=== PATIENT | male | born 2000 | race Caucasian/White ===

== ENCOUNTER 2024-12-10 19:06 | Emergency (ER) | payer BC, SELFPAY ==
[2024-12-10 19:07] VITALS: BMI 21.9
[2024-12-10 19:15] VITALS: BP 136/78; PULSE 78; RESP 20; TEMP 36.5; O2SAT 99
--- NOTE | 2024-12-10 19:21 | XR_ITS ---
Examination: Testicular sonography complete Technique: Grayscale sonographic images testes, assessment arterial inflow venous outflow Doppler spectral analysis carful analysis Date and time: December 10, 2024, 194 hrs. Indications: Left flank pain radiating to the testicle today Findings: Right testis 3.3 cm epididymis 12 mm Arterial flow testicle. No testicular mass Left testis 3.6 cm epididymis 11 mm 3 mm epididymal cyst Arterial flow testicle. No testicular mass Impression: No testicular torsion or testicular mass
--- NOTE | 2024-12-10 19:21 | XR_ITS ---
Examination: CT abdomen and pelvis without contrast. Coronal 3-D reconstructions. Sagittal 2-D reconstructions. Date and time of exam:December 10, 2024, 2011 hrs. Indications: Left flank pain onset today. CTDI: vol (mGy): 4.99 DLP: (mGycm): 258 Technique: Axial images of the abdomen have been obtained, 3 mm slice thickness Intravenous contrast material has not been administered. Low dose protocols were performed. One or more of the following dose reduction techniques were used; automated exposure control, adjustment of the mA and/or KV according to patient size, use of iterative reconstruction technique. Findings: No focal liver or splenic lesion No gallstones No pancreatic or adrenal mass Hyperdense renal pyramids bilaterally, nephrocalcinosis pattern Mild left hydronephrosis, 4 mm distal left ureteral calculus No bowel obstruction Normal appendix Contracted urinary bladder Impression: Mild left hydronephrosis secondary to 4 mm distal left ureteral calculus
--- NOTE | 2024-12-10 19:22 | PD.EDRME ---
Rapid Medical Screening Exam RME Arrival date/time: 12/10/24 19:06 24M with no significant PMH presents to ED with sudden L flank/pelvic pain that radiates to groin, as well as N/V. Patient denies dysuria, penile discharge, and concern for STD. Chief Complaint: General Adult/Misc Complain Time Seen by Provider: 12/10/24 19:20 Vital signs: Vital Signs Temperature 97.7 F 12/10/24 19:15 Pulse Rate 78 12/10/24 19:15 Respiratory Rate 20 12/10/24 19:15 Blood Pressure 136/78 H 12/10/24 19:15 Pulse Oximetry (%) 99 12/10/24 19:15 Oxygen Delivery Method Room Air 12/10/24 19:15
[2024-12-10] MEDS: KETOROLAC INJ 60 MG/2 ML VIAL IM (19:32)
[2024-12-10] MEDS: ONDANSETRON ODT 4 MG TABRAP PO (19:34)
[2024-12-10 19:41] LABS: Basophils # (Auto) 0.0 Thou/mm3 (0.0-0.2); Basophils % (Auto) 0 % (0-2.5); Eosinophils # (Auto) 0.1 Thou/mm3 (0.0-0.5); Eosinophils % (Auto) 1 % (0-10); Hematocrit 48.2 % (41.0-53.0); Hemoglobin 17.2 g/dL (13.5-16.0); Immature Granulocytes Auto 0.01 Thou/mm3 (0.00-0.00); Lymphocytes # (Auto) 2.0 Thou/mm3 (1.0-4.8); Lymphocytes % (Auto) 29 % (10-50); Mean Corpuscular HGB Conc 35.7 g/dl (31.0-37.0); Mean Corpuscular Hemoglobin 31.2 pg (25.0-35.0); Mean Corpuscular Volume 87 fL (80-100); Monocytes # (Auto) 0.8 Thou/mm3 (0.0-0.8); Monocytes % (Auto) 11 % (0-12); Neutrophils # (Auto) 4.0 Thou/mm3 (1.8-7.7); Neutrophils % (Auto) 58 % (37-80); Nucleated Red Blood Cell # 0.00 Thou/mm3 (0.00-0.00); Nucleated Red Blood Cell % 0 /100 WBC (0); Platelet Count 291 Thou/mm3 (140-440); RDW Standard Deviation 38.2 fL (35.1-43.9); Red Blood Count 5.52 Miln/mm3 (4.50-5.90); White Blood Count 6.9 Thou/mm3 (3.8-10.6)
[2024-12-10 19:58] LABS: Alanine Aminotransferase 18 U/L (10-49); Albumin, Serum 5.1 gm/dL (3.5-5.0); Albumin/Globulin Ratio 1.8 (1.2-2.2); Alkaline Phosphatase 87 U/L (46-116); Anion Gap 9 (7-16); Aspartate Amino Transferase 25 U/L (0-34); BUN/Creatinine Ratio 8 Ratio (12-20); Bilirubin,Total 2.0 mg/dL (0.3-1.2); Blood Urea Nitrogen 10 mg/dL (9-23); Calcium 10.3 mg/dL (8.3-10.6); Calcium (Corrected) 10.3 mg/dL (8.5-10.1); Carbon Dioxide 26.9 mMol/L (20.0-31.0); Chloride 106 mMol/L (98-107); Creatinine (Component) 1.2 mg/dL (0.6-1.3); Estimated Creatinine Clearance 92.3 mL/min (>60); Globulin 2.8 gm/dL (2.3-3.5); Glucose 110 mg/dL (74-106); Osmolality,Calculated 283 (275-295); Potassium 3.7 mMol/L (3.4-5.1); Sodium 142 mMol/L (136-145); Total Protein 7.9 gm/dL (5.7-8.2); eGFR > 60 See Note
[2024-12-10 23:06] LABS: Collection Type, Urine Clean Catch; Squamous Epithelial Cell,Urine 0 /hpf (0-5)
[2024-12-10 23:22] LABS: Amphetamine/Methamp Scrn,U Negative (Negative); Barbiturate Screen,Urine Negative (Negative); Benzodiazepines Screen,Urine Negative (Negative); Benzoylecgonine Screen, Ur Negative (Negative); Fentanyl Screen,Urine Negative (Negative); Opiate Screen,Urine Negative (Negative); THC Screen,Urine Negative (Negative)
[2024-12-10 23:25] LABS: Bilirubin,Urine Negative (Negative); Blood,Urine 3+ (Negative); Clarity,Urine Turbid (Clear/Hazy); Color,Urine Yellow (Lt Yel-Yel); Culture Indicated,Urine Not Indicated; Glucose, Urine Negative (Negative); Ketones,Urine 1+ (Negative); Leukocyte Esterase,Urine Negative (Negative); Nitrite,Urine Negative (Negative); PH,Urine 6.0 (5.0-7.0); Protein,Urine 1+ (Neg - Trace); RBC,Urine 454 /hpf (0-3); Specific Gravity,Urine 1.035 (1.001-1.035); Urobilinogen,Urine Negative mg/dL (0.0-1.0); WBC,Urine 3 /hpf (0-5)
--- NOTE | 2024-12-10 23:41 | EDNOTE_ITS ---
ED Male Genitalurinary RME/HPI General Chief complaint: General Adult/Misc Complain Stated complaint: testical pain Time Seen by Provider: 12/10/24 19:20 Arrival date/time: 12/10/24 19:06 24M with no significant PMH presents to ED with sudden L flank/pelvic pain that radiates to groin, as well as N/V. Patient denies dysuria, penile discharge, and concern for STD. Limitations: no limitations RME / HPI RME / HPI Narrative: 12/10/24 19:06 24M with no significant PMH presents to ED with sudden L flank/pelvic pain that radiates to groin, as well as N/V. Patient denies dysuria, penile discharge, and concern for STD. Related Data Home Medications ?Medication ?Instructions ?Recorded ?Confirmed loratadine 10 mg tablet (Claritin) 10 mg PO QDAY 07/14 Previous Rx's ?Medication ?Instructions ?Recorded naproxen 500 mg tablet 500 mg PO BID PRN pain #14 t abs 12/10/24 ondansetron 4 mg disintegrating 4 mg PO Q8H PRN nausea and 12/10/24 tablet vomiting #14 tabs tamsulosin 0.4 mg capsule (Flomax) 0.4 mg PO QDAY #14 caps 12/10/24 Allergies Allergy/AdvReac Type Severity Reaction Status Date / Time amoxicillin Allergy Mild RASH Verified 09/15/19 18:05 clavulanic acid Allergy Mild RASH Verified 09/15/19 18:05 Sulfa (Sulfonamide Allergy RASH Verified 09/15/19 18:05 Antibiotics) Review of Systems Review of Systems Systems Reviewed: All systems reviewed, normal except as documented Genitourinary Genitourinary: Reports as per HPI and Reports flank pain Past Medical History Past Medical History CARDIAC: Negative Congestive Heart Failure RESPIRATORY: Negative Chronic Obstructive Pulmonary Disease (COPD) GENITOURINARY: Negative Renal Disease ENDOCRINE: Negative Diabetes Mellitus Type 1 or Diabetes Mellitus Type 2 Surgical History SURGICAL: Positive Ear Surgery (left ear blown out ear drum) Social History SMOKING STATUS: Never smoker ED Exam General Limitations: Present no limitations General appearance: Present alert and in distress Head Head exam: Present atraumatic Neck Neck exam: Present normal inspection, full ROM and trachea midline Chest Chest inspection: Present normal inspection and symmetric chest wall rise Neurological Exam Neurological exam: Present alert and oriented X3 Psychiatric Psychiatric exam: Present normal affect and anxious Skin Skin exam: Present warm, dry, intact and normal color Course Quality Measures none Orders Category Date Time Status CT abdomen pelvis wo con Stat Exams 12/10/24 19:21 Completed US testicular Stat Exams 12/10/24 19:21 Completed CBC Stat Lab 12/10/24 19:32 Completed CMP [Comprehensive Metabolic Panel] Stat Lab 12/10/24 19:32 Completed Drug Screen,Urine Stat Lab 12/10/24 23:01 Completed Urinalysis, C/S if Indicated Stat Lab 12/10/24 23:01 Completed Ketorolac Inj [Toradol Inj] Med 12/10/24 19:21 Discontinued 60 mg IM X1 ONE Morphine Oral LIQUID Med 12/10/24 23:51 Discontinued 5 mg PO X1 ONE Ondansetron Odt [Zofran Odt] Med 12/10/24 19:21 Discontinued 4 mg PO X1 ONE Tamsulosin HCl [Flomax] Med 12/10/24 23:51 Discontinued 0.4 mg PO X1 ONE Vital Signs Vital signs: Vital Signs Temperature 97.7 F 12/10/24 19:15 Pulse Rate 78 12/10/24 19:15 Respiratory Rate 20 12/10/24 19:15 Blood Pressure 136/78 H 12/10/24 19:15 Pulse Oximetry (%) 99 12/10/24 19:15 Oxygen Delivery Method Room Air 12/10/24 19:15 O2 at 99% on RA and WNLs Urogenital - Male MDM Narrative MDM Narrative:: 24M with no significant PMH presents to ED with sudden L flank/pelvic pain that radiates to groin, as well as N/V. Patient denies dysuria, penile discharge, and concern for STD. Physical exam reveals patient who appears to be in pain. Patient is afebrile and alert. CT reveals 4 mm L distal kidney stone. US testicular unremarkable. No leukocytosis. CMP unremarkable. UA only blood. Meds and debt and budget counselor given. Patient data External records reviewed:: [facility] previous records Clinical information provided by:: patient Social determinants that could affect healthcare access:: none Patient has the following chronic illnesses:: none How is presenting disease/condition affected by chronic disease/condition?: no chronic disease Evaluation data The following diagnostics were reviewed and interpreted by me:: lab results and radiology exam(s) Lab and/or radiology exams considered but not ordered:: ordered Interpretation Summary: above Medications / Prescriptions Medications or Prescriptions considered but not ordered:: ordered Medication administrations:: Medication Administration History Discontinued Medications Ketorolac Tromethamine (Ketorolac Inj 60 Mg/2 Ml Vial) 60 mg IM X1 ONE Stop: 12/10/24 19:22 Last Admin: 12/10/24 19:32 Dose: 60 mg Documented By: OA Morphine Sulfate (Morphine Sulf Liqd 10 Mg/5 Ml Udc) 5 mg PO X1 ONE Stop: 12/10/24 23:52 Ondansetron HCl (Ondansetron Odt 4 Mg Tabrap) 4 mg PO X1 ONE; Protocol Stop: 12/10/24 19:22 Last Admin: 12/10/24 19:34 Dose: 4 mg Documented By: OA Tamsulosin HCl (Tamsulosin Hcl 0.4 Mg Capsule) 0.4 mg PO X1 ONE Stop: 12/10/24 23:52 above Consultations Consultation(s) initiated? (list below): No Diagnosis Urogenital Male Differential Diagnosis: urinary tract infection, priapism, urethritis, epididymitis, genital herpes simplex, prostatitis, acute retention of urine and inguinal hernia Most likely diagnosis given after review of the tests above:: kidney stone Admission Indicated Admission indicated?: not indicated Admission Request Was there a request for admission?: No Disposition Plan Disposition Plan: Discharge Discharge Attestation Discharge Attestation: The patient and all family members were given an opportunity to ask questions and understood the discharge instructions. Discharge instructions specifically effects, indications for sooner follow up or return to the emergency department, and the expected course of current diagnosis. Patient condition: Stable Discharge Plan Plan Patient Disposition: HOME (Self Care) Discharge Disposition comment: Stable Prescriptions/Referrals Prescriptions/Med Rec: New ondansetron 4 mg tablet,disintegrating 4 mg PO Q8H PRN (Reason: nausea and vomiting) Qty: 14 0RF tamsulosin [Flomax] 0.4 mg capsule 0.4 mg PO QDAY Qty: 14 0RF naproxen 500 mg tablet 500 mg PO BID PRN (Reason: pain) Qty: 14 0RF No Action loratadine [Claritin] 10 mg tablet 10 mg PO QDAY Referrals: No Primary/Family,Physician [Primary Care Provider] - In 1 week Problem List Clinical Impression: Kidney stone Patient/Caregiver Discharge Instructions Education Materials: ED Kidney Stone w/ Colic Additional Instructions: Please follow-up with PCP within 24-48 hours and return immediately if symptoms worsen. NSAIDs like ibuprofen tend to work better for this type of pain. Print Language: Korean Stand Alone Forms: Patient Portal Info Letter PA/COMPUTER MECHANIC Supervising Physician PA/COMPUTER MECHANIC Supervising Physician: Dr. Joseph
[2024-12-11] MEDS: TAMSULOSIN HCL 0.4 MG CAPSULE PO (00:06)
[2024-12-11] MEDS: MORPHINE SULF LIQD 10 MG/5 ML UDC 5 MG PO (00:06)
== END 2024-12-11 00:10 | disposition home or self-care (01) ==
PROVIDERS: Physician Assistant; Emergency Provider Emergency Medicine
DX: N20.0 Calculus of kidney (principal)
CPT/HCPCS: 36415; 74176; 76870; 80053; 80307; 81001; 85025; 96372; 99284; J1885; Q0162; A9270